=== PATIENT | male | born 1990 | race Caucasian/White ===

== ENCOUNTER 2017-06-10 01:12 | Emergency (ER) | payer OTHER ==
[~2017-06-10] VITALS: Ht 177.8 cm; Wt 74.8 kg
[2017-06-10 01:30] VITALS: BP 137/81
[2017-06-10] MEDS ORDERED: TUBERCULIN PPD 5 UNIT/0.1 ML ID ONE (02:30)
== END 2017-06-10 04:39 | disposition home or self-care (01) ==
LOC: ER 01:24
DX: A15.9 Respiratory tuberculosis unspecified (principal)
CPT/HCPCS: 71045